=== PATIENT | female | born 1985 | race Caucasian/White ===

== ENCOUNTER 2019-08-07 19:57 | Emergency (ER) | payer BC ==
[2019-08-07] MEDS ORDERED: Ondansetron 4 MG Tab.DIS PO ONE (19:58)
[2019-08-07 20:34] VITALS: BP 134/68; PULSE 84
[2019-08-07] MEDS: Ondansetron 4 MG/2 ML SDV IVPUSH STA (20:48)
[2019-08-07] MEDS: Lactated Ringers 1,000 ML IV ONE ×2 (20:48→21:51)
[2019-08-07] MEDS: Meclizine 12.5 MG Tab PO ONE ×2 (21:17→21:18)
--- NOTE | 2019-08-07 22:00 | EDM.PDOC ---
ED HPI GENERAL MEDICAL PROBLEM - General Chief Complaint: General Stated Complaint: vertigo Time Seen by Provider: 08/07/19 20:51 Source of Information: Reports: Patient, Family () History Limitations: Reports: No Limitations - History of Present Illness INITIAL COMMENTS - FREE TEXT/NARRATIVE: Maria Teresa is a 34 yo female who presents to the ED via private vehicle with complaints of vertigo. She states she was in the shower this morning and tilted her head back to shampoo her hair. She states immediately the room started spinning. 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 She admits she has been severely nauseated with the vertigo and has had emesis on multiple occasions. She states if she holds her head still and does get up the vertigo mostly subsides. She admits to feeling run down lately with just coming off a shift at work and has had some loose stools over the weekend. She denies otherwise feeling ill. - Related Data Allergies Allergy/AdvReac Type Severity Reaction Status Date / Time No Known Allergies Allergy Verified 08/07/19 20:32 Home Meds: Home Meds Norethindrone [Sharobel] 1 tab PO DAILY 08/07/19 [History] Ondansetron [Zofran ODT] 4 mg PO Q4H PRN #12 tab.dis 08/07/19 [Rx] Past Medical History - Past Health History Medical/Surgical History: Denies Medical/Surgical History Social & Family History - Tobacco Use Smoking Status *Q: Unknown Ever Smoked ED ROS GENERAL - Review of Systems Review Of Systems: Comprehensive ROS is negative, except as noted in HPI. Constitutional: Denies: Fever, Chills HEENT: Reports: Vertigo, Other (Denies any ringing in ears). Denies: Hearing Loss, Sinus Problem, Vision Change Respiratory: Denies: Shortness of Breath, Wheezing Cardiovascular: Denies: Chest Pain, Lightheadedness, Palpitations, Syncope GI/Abdominal: Reports: Nausea, Vomiting. Denies: Abdominal Pain : Reports: Other (Denies any chance of ). Denies: Discharge, Dysuria , Flank Pain, Frequency, Hematuria, Irregular Menses Skin: Reports: No Symptoms Neurological: Reports: Difficulty Walking. Denies: Confusion, Headache, Pre- Existing Deficit, Seizure, Syncope, Trouble Speaking, Weakness Psychiatric: Reports: No Symptoms ED EXAM, GENERAL - Physical Exam Exam: See Below Exam Limited By: No Limitations General Appearance: Alert, No Apparent Distress Eye Exam: Bilateral Eye: EOMI, Normal Inspection Ears: Normal External Exam, Normal Canal, Hearing Grossly Normal, Normal TMs Nose: Normal Inspection, Normal Mucosa, No Blood Throat/Mouth: Normal Inspection, Normal Lips, Normal Teeth, Normal Gums, Normal Oropharynx, Normal Voice, No Airway Compromise, Other (dry oral mucosa) Head: Atraumatic, Normocephalic Neck: Normal Inspection, Supple, Non-Tender Respiratory/Chest: No Respiratory Distress, Lungs Clear, Normal Breath Sounds, No Accessory Muscle Use Cardiovascular: Normal Peripheral Pulses, Regular Rate, Rhythm, No Edema, No Murmur GI/Abdominal: Normal Bowel Sounds, Soft, Non-Tender, No Organomegaly, No Distention Extremities: Normal Inspection, No Pedal Edema, Normal Capillary Refill Neurological: Alert, Oriented, Normal Cognition, No Motor/Sensory Deficits. No : Inattentive, Confused, Disoriented, Slow to Respond, Unresponsive, Memory Loss Remote Events, Memory Loss Recent Events Psychiatric: Normal Affect, Normal Mood Skin Exam: Warm, Dry, Intact, Normal Color, No Rash Course - Vital Signs Last Recorded V/S: Last Vital Signs Temp 98.5 F 08/07/19 20:33 Pulse 84 08/07/19 20:33 Resp 16 08/07/19 20:33 BP 134/68 08/07/19 20:33 Pulse Ox 99 08/07/19 20:33 - Orders/Labs/Meds Meds: Medications Discontinued Medications Generic Name Dose Route Start Last Admin Trade Name Edward PRN Reason Stop Dose Admin Lactated Ringer's 1,000 mls @ 999 mls/hr 08/07/19 20:31 08/07/19 20:48 Ringers, Lactated IV 08/07/19 21:31 999 mls/hr .BOLUS ONE Administration Lactated Ringer's 1,000 mls @ 999 mls/hr 08/07/19 21:49 08/07/19 21:51 Ringers, Lactated IV 08/07/19 22:49 999 mls/hr .BOLUS ONE Administration Meclizine HCl 24 mg 08/07/19 21:12 08/07/19 21:18 Antivert PO 08/07/19 21:13 Not Given ONETIME ONE Meclizine HCl 25 mg 08/07/19 21:16 08/07/19 21:17 Antivert PO 08/07/19 21:17 25 mg ONETIME ONE Administration Ondansetron HCl 4 mg 08/07/19 20:32 08/07/19 20:48 Zofran IVPUSH 08/07/19 20:33 4 mg ONETIME STA Administration Ondansetron HCl 2 packet 08/07/19 22:15 08/07/19 22:30 Take Home: Ondansetron Odt 4 Mg, 2 Tab Pack PO 08/07/19 22:16 2 packet ONETIME ONE Administration - Re-Assessments/Exams Free Text/Narrative Re-Assessment/Exam: Maria Teresa seen significant improvement with IV fluids and Zofran. Nausea mostly subsided. Meclizine was given as well for motion sickness. We will discharge home in which she is comfortable with plan. See additional instructions. Departure - Departure Time of Disposition: 22:54 Disposition: Home, Self-Care 01 Clinical Impression: Benign paroxysmal positional vertigo, bilateral - Discharge Information Prescriptions: Ondansetron [Zofran ODT] 4 mg PO Q4H PRN #12 tab.dis PRN Reason: Nausea Instructions: Benign Positional Vertigo Referrals: PCP,None [Primary Care Provider] - Forms: ED Department Discharge Additional Instructions: 1) Zofran ODT's - 1 tablet every 4 hours as needed for nausea. Prescription sent to [facility] and take home pack given as well. 2) Meclizine 25mg every 8 hours as needed for motion sickness 3) Encourage drinking plenty of water 4) Recommend keeping head slightly elevated as well 5) Avoid sudden head movement and recommend refraining from driving until symptoms have subsided 6) Encourage repeating canalith repositioning 7) If symptoms continue or worsen, advise returning for further evaluation. - Problem List & Annotations (1) Benign paroxysmal positional vertigo, bilateral SNOMED Code(s): 318052440 Code(s): H81.13 - BENIGN PAROXYSMAL VERTIGO, BILATERAL Status: Acute Current Visit: Yes
[2019-08-07] MEDS: Take Home: Ondansetron 4 MG Tab.DIS, 2 Tab Pack PO ONE (22:30)
== END 2019-08-07 23:02 | disposition home or self-care (01) ==
LOC: CC.ED 19:57
DX: H81.13 Benign paroxysmal vertigo, bilateral (principal)
CPT/HCPCS: 96361; 96374; 99283-25; A9270-GY; J2405; J7120

== ENCOUNTER 2024-01-07 14:38 | Emergency (ER) | payer BC ==
[2024-01-07 15:03] LABS: BASOPHILS ABSOLUTE AUTO 0.03 10^3/uL (0.00-0.50); BASOPHILS PERCENT AUTO 0.3 % (0-1); HEMATOCRIT 38.8 % (37.0-47.0); HEMOGLOBIN 13.3 g/dL (12.0-16.0); IMMATURE GRAN ABSOLUTE AUTO 0.01 10^3/uL (0.00-0.49); IMMATURE GRAN PERCENT AUTO 0.1 % (0.0-4.9); LYMPHOCYTES ABSOLUTE AUTO 0.45 10^3/uL (0.60-5.00); MEAN CORPUSCULAR HGB CONC 34.3 g/dL (32.0-36.0); MEAN CORPUSCULAR VOLUME 90.4 fL (83.0-97.0); MONOCYTES ABSOLUTE AUTO 0.43 10^3/uL (0.00-1.50); MONOCYTES PERCENT AUTO 4.8 % (0-10); NEUTROPHILS ABSOLUTE AUTO 8.12 x10^3/uL (1.80-8.00); NEUTROPHILS PERCENT AUTO 89.8 % (41-71); PLATELET COUNT,PLT 260 10^3/uL (150-400); RED BLOOD CELL COUNT 4.29 x10^6/uL (4.00-5.50)
[2024-01-07] MEDS: Ondansetron 4 MG/2 ML SDV IVPUSH ONE (15:18)
[2024-01-07 15:19] LABS: ALANINE AMINOTRANSFERASE,ALT 26 U/L (12-78); ALBUMIN 4.4 g/dL (3.4-5.0); ALKALINE PHOSPHATASE 45 U/L (46-116); ASPARTATE AMNIOTRANSFERASE,AST 14 U/L (15-37); BLOOD UREA NITROGEN,BUN 12 mg/dL (7-18); CALCIUM 8.4 mg/dL (8.4-10.1); CARBON DIOXIDE,CO2 28 mmol/L (21-32); CHLORIDE,CL 101 mEq/L (98-106); CREATININE 0.8 mg/dL (0.6-1.0); EST CRCL DRUG DOSING (CG) 92.17 mL/min; ESTIMATED GFR 97 mL/min (>=60); GLUCOSE RANDOM 86 mg/dL (75-99); LIPASE 21 U/L (16-77); MAGNESIUM 1.7 mg/dL (1.8-2.4); POTASSIUM,K 3.8 mEq/L (3.5-5.0); PROTEIN TOTAL,TP 7.5 g/dL (6.4-8.2); SODIUM,NA 140 mEq/L (136-145)
[2024-01-07] MEDS: Sodium Chloride 0.9% 1,000 ML IV ONE (15:21)
[2024-01-07] MEDS: Metoclopramide 10 MG/2 ML SDV IVPUSH ONE (16:29)
== END 2024-01-07 16:35 | disposition home or self-care (01) ==
LOC: CC.ED 14:38 → MERGE 14:38 → CC.ED 16:35
DX: R11.2 Nausea with vomiting, unspecified (principal)
CPT/HCPCS: 36415; 71045; 80053; 83690; 83735; 84484; 85025; 93005; 93010; 96361; 96374; 96375; 99283; 99285-25; J2405; J2765; J7030

== ENCOUNTER 2024-07-15 15:05 | Emergency (ER) | payer BC ==
[2024-07-15] MEDS: predniSONE 20 MG Tab PO STA (16:17)
== END 2024-07-15 16:30 | disposition home or self-care (01) ==
LOC: CC.ED 15:05
DX: J06.9 Acute upper respiratory infection, unspecified (principal); B97.89 Other viral agents as the cause of diseases classified elsewhere; Z79.899 Other long term (current) drug therapy
CPT/HCPCS: 87428-QW; 99283; J7512